=== PATIENT | male | born 1990 | race African-American/Black ===

== ENCOUNTER 2020-06-08 17:25 | Emergency (ER) | payer MEDICAID ==
[~2020-06-08] VITALS: Ht 172.7 cm; Wt 75.0 kg
[2020-06-08] MEDS ORDERED: TETANUS, DIPHTHERIA, PERTUSSIS VAC/PF 0.5ML (>7YR OLD) IM ONE (18:00)
[2020-06-08] MEDS ORDERED: HYDROCODONE/ACETAMINOPHEN 5/325MG TABLET PO ONE (18:00)
[2020-06-08] MEDS ORDERED: IBUPROFEN 400MG TABLET PO ONE (18:00)
== END 2020-06-08 19:10 | disposition home or self-care (01) ==
LOC: ER 17:25
DX: S81.832A Puncture wound without foreign body, left lower leg, initial encounter (principal); W34.00XA Accidental discharge from unspecified firearms or gun, initial encounter; Y93.89 Activity, other specified; Y92.010 Kitchen of single-family (private) house as the place of occurrence of the external cause; Z23 Encounter for immunization
CPT/HCPCS: 73590; 90471; 90715; 93005; 99283